=== PATIENT | female | born 1955 | race Caucasian/White ===

== ENCOUNTER 2018-02-21 12:39 | Day surgery (SDC) | payer BC ==
[2018-02-21] MEDS ORDERED: LIDOCAINE 4% SOLUTION 50 ML BTL (14:38)
[2018-02-21] MEDS ORDERED: FENTAnyl 50 MCG/ML VIAL (15:12)
[2018-02-21] MEDS ORDERED: MIDAZOLAM 1 MG/ML 2 ML INJ ×2 (15:12)
== END 2018-02-21 17:04 | disposition home or self-care (01) ==
LOC: GIL 12:39
DX: K29.70 Gastritis, unspecified, without bleeding (principal); I10 Essential (primary) hypertension
CPT/HCPCS: 43239; 88305; 88312; 88313